=== PATIENT | female | born 1950 | race Caucasian/White ===

== ENCOUNTER 2018-02-06 12:50 | Outpatient (CLI) | payer MEDICARE ==
[~2018-02-06 12:50] MED LIST: BUDE10.22 INH; ESTR1PAT10 TD
[2018-02-06] MEDS ORDERED: ASCO10004 PO (13:47)
[2018-02-06] MEDS ORDERED: MULT-658 PO (13:47)
[2018-02-06] MEDS ORDERED: OMEG-76 PO (13:47)
[2018-02-06] MEDS ORDERED: statin PO (13:47)
[2018-02-06] MEDS ORDERED: CHOL5000 PO (13:47)
[2018-02-06 14:14] LABS: ANION GAP 4 mmol/L (5-15); CALCIUM 9.1 mg/dL (8.5-10.1); CHLORIDE 108 mmol/L (98-107); CREATININE 0.81 mg/dL (0.55-1.02)
== END 2018-02-06 23:59 | disposition home or self-care (01) ==
LOC: STAR 12:50
PROVIDERS: ATTEND Surgery
DX: Z01.818 Encounter for other preprocedural examination (principal); I86.8 Varicose veins of other specified sites; I87.8 Other specified disorders of veins
CPT/HCPCS: 36415; 80048; 93005

== ENCOUNTER 2018-02-11 05:16 | Day surgery (SDC) | payer MEDICARE ==
[2018-02-06 13:28] VITALS: BP 168/75
[~2018-02-11] VITALS: Ht 172.7 cm; Wt 81.5 kg
[~2018-02-11 05:16] MED LIST changes: +ASCO10004 PO; +CHOL5000 PO; +MULT-658 PO; +OMEG-76 PO; +statin PO
[2018-02-11] MEDS ORDERED: LACTATED RINGERS 1,000 ML IV SCH (06:03)
[2018-02-11] MEDS ORDERED: ATOR10TA9 PO (06:04)
[2018-02-11 06:06] VITALS: BP 168/75
[2018-02-11] MEDS ORDERED: HEPARIN 1,000 UNITS/ML, 10ML ONE (06:19)
[2018-02-11] MEDS ORDERED: LIDOCAINE 1%-EPI 1:100K, 30ML ONE ×2 (06:19→06:31)
[2018-02-11] MEDS ORDERED: THROMBIN 5,000 UNIT VIAL TP ONE (06:19)
[2018-02-11] MEDS ORDERED: MIDAZOLAM 1 MG/ML, 2ML ONE (06:50)
[2018-02-11] MEDS ORDERED: FENTANYL PF 250 MCG/5ML ONE (06:50)
[2018-02-11] MEDS ORDERED: PROPOFOL 10 MG/ML, 20ML ONE (07:21)
[2018-02-11] MEDS ORDERED: ONDANSETRON 2MG/ML, 2ML ONE (07:21)
[2018-02-11] MEDS ORDERED: DEXAMETHASONE 4 MG/ML, 1ML ONE (07:21)
[2018-02-11] MEDS ORDERED: CEFAZOLIN 1,000 MG ONE (07:21)
[2018-02-11] MEDS ORDERED: DIAZEPAM 5 MG/ML, 2ML IVPush PRN (08:30)
[2018-02-11] MEDS ORDERED: MEPERIDINE/PF 25MG/0.5ML IVPush PRN (08:30)
[2018-02-11] MEDS ORDERED: FENTANYL PF 100 MCG/2ML IV PRN (08:30)
[2018-02-11] MEDS ORDERED: OXYcodone 5 MG/5 ML ORAL.SOL UDC PO PRN (08:30)
[2018-02-11] MEDS ORDERED: KETOROLAC 30 MG/1 ML IV PRN (08:30)
[2018-02-11] MEDS ORDERED: hydrALAzine 20 MG/ML, 1ML IV PRN (08:30)
[2018-02-11] MEDS ORDERED: ALBUTEROL SULFATE 2.5 MG/3 ML NPPB PRN (08:30)
[2018-02-11] MEDS ORDERED: LABETALOL 5MG/ML, 20ML IV PRN (08:30)
[2018-02-11] MEDS ORDERED: PROMETHAZINE 25 MG/ML, 1ML IV PRN (08:30)
[2018-02-11] MEDS ORDERED: ACETAMINOPHEN 325 MG TABLET PO PRN (08:30)
[2018-02-11] MEDS ORDERED: HYDROmorphone 2 MG/ML, 1ML IVPush PRN (08:30)
[2018-02-11] MEDS ORDERED: HYDROcodone/APAP 7.5-325MG/15ML UDC ONE (09:17)
[2018-02-11] MEDS ORDERED: FENTANYL PF 100 MCG/2ML ONE (09:17)
[2018-02-11] MEDS ORDERED: HYDROcodone/APAP 7.5-325MG/15ML UDC PO PRN ×2 (10:00)
== END 2018-02-11 12:50 | disposition home or self-care (01) ==
LOC: OUT 05:16
PROVIDERS: ATTEND Surgery
DX: I83.813 Varicose veins of bilateral lower extremities with pain (principal); J45.909 Unspecified asthma, uncomplicated; E78.00 Pure hypercholesterolemia, unspecified; Z88.5 Allergy status to narcotic agent
CPT/HCPCS: 36475; 37766; C1888; C1894; J0690; J1100; J1644; J2250; J2405; J2704; J3010; J3490; J7120

== ENCOUNTER 2018-02-14 11:40 | Outpatient (CLI) | payer MEDICARE ==
[~2018-02-14 11:40] MED LIST changes: +ATOR10TA9 PO
== END 2018-02-14 23:59 | disposition home or self-care (01) ==
LOC: CVU 11:40
PROVIDERS: ATTEND Surgery
DX: I87.2 Venous insufficiency (chronic) (peripheral) (principal); I83.813 Varicose veins of bilateral lower extremities with pain
CPT/HCPCS: 93971

== ENCOUNTER → 2019-11-11 | Outpatient (CLI) | payer MEDICARE ==
[~2019-11-11] MED LIST changes: +ASCO100018 PO; -ASCO10004 PO
== END | disposition home or self-care (01) ==
LOC: CFH 07:09
PROVIDERS: ATTEND Family Medicine
DX: Z12.31 Encounter for screening mammogram for malignant neoplasm of breast (principal); M85.88 Other specified disorders of bone density and structure, other site; N95.9 Unspecified menopausal and perimenopausal disorder
CPT/HCPCS: 76641; 77063; 77067; 77080